=== PATIENT | female | born 1985 | race Caucasian/White ===

== ENCOUNTER 2017-06-03 07:43 | Emergency (ER) | payer OTHER ==
[~2017-06-03] VITALS: Ht 165.1 cm; Wt 68.3 kg
[2017-06-03 07:46] VITALS: BP 111/72; PULSE 94; RESP 14; O2SAT 100
--- NOTE | 2017-06-03 07:49 | ED.REPORT ---
HPI-Extremity Problem Lower Date of Service Jun 03, 2017 ED Provider: Barbara Jj Patient is a 31 year old female who is 24 weeks gestation who presents to the ED complaining of a bulging vein on her R lower extremity onset 3 days ago. Associated symptom include bruising and pain. Pt reports doing more hiking recently and has a flight tomorrow. She denies chest pain, SOB, dizziness, numbness, weakness, tingling, or any other symptoms. Nursing Notes Stated Complaint: RT ANTERIOR LEG VEIN Chief Complaint: Extremity Trauma Nursing Notes Reviewed: Yes Allergies: Coded Allergies: No Known Allergies (Unverified , 06/03/17) General Time Seen by MD: 07:48 Chief Complaint Leg injury right Hx Obtained From: Patient Arrived By: Walk-in Onset Occurred: 3 days ago Symptom Duration: Since onset Location: : Leg right Quality: Painful Severity: Current: Moderate Severity: Maximum: Moderate Pertinent Negative: Pt denies other symptoms Immunizations: Unknown Similar Sx Previous: No Past Medical History Past Medical History None reported Past Surgical History None reported Smoking History Unknown if Ever Smoker Social History Other Social History: , Visiting locally Ambulatory Status Independent Review of Systems Review of Systems Note: +bulging vein on her R lower extremity -tingling Musculoskeletal: Reports: Extremity pain Skin: Reports Bruising Neurologic: Denies: Dizziness, Numbness, Weakness Complete sys rev & neg: except as marked. Respiratory: Denies: Shortness of breath Cardiovascular: Denies: Chest pain Physical Exam Initial Vital Signs Vital Signs (First) Date Time Temp Pulse Resp B/P Pulse Ox O2 Delivery O2 Flow Rate FiO2 06/03/17 07:46 36.6 94 14 111/72 100 Room Air Initial VS: Reviewed, Vital signs normal Head / Eyes: Atraumatic, Normocephalic Neck: Supple, Full range of motion Respiratory: No respiratory distress Skin: Warm, Dry Neurologic: Alert, Oriented, Nonfocal Lower Extremity / Pelvis / MS: No swelling both calves are non-swollen superficial thrombophlebitis on R anterior machado mildly vericose vein, 15cm section without skin breakdown, cellulitis, or other erythema. Ankle / Foot: Inspection NL, No deformity, Neurologic intact, Vascular intact General/Constitutional: Awake, Alert, No acute distress : FHTs NL (rate 156) Positve movement Re-Eval/Medical Decision Re-Evaluation/Progress : Time of Eval: 08:04 Re-Evaluation/Progress Note: Discussed plan for discharge. Patient understands and agrees with plan. All questions addressed at this time. Counseled Regarding: Diagnosis, Need for follow-up, When/why to return to ED Discharge & Departure Impression: Primary Impression: Superficial thrombophlebitis during Trimester: unspecified trimester Qualified Code: O22.20 - Superficial thrombophlebitis in , unspecified trimester Disposition: Home Discharge Condition All VS Reviewed: Yes Condition: Stable Patient Instructions: Superficial Thrombophlebitis (ED) Additional Instructions: You can be reassured. this is a blood clot in your leg, BUT it is NOT a deep vein and NOT the kind I worry about for ending up in your lungs -take a baby asprin daily until you have a chance to talk with your OB provider at home -massage the area to help the clot break down and encourage blood flow -if tender, use tylenol and elevation for pain. You can try both heat and cold to see what feels best -get some knee high compression socks (any running store and most athletic stores) and wear them for comfort and while flying -while on plane tomorrow, make a point of walking to the bathroom a few times to get a bit a movement -all regular activity (inlcuding hiking/walking) is OK good luck with the rest of the ! Safe travels tomorrow Faith Attestation Portions of this note were transcribed by Catherine Mora. I, Dr. Jj personally performed the history, physical exam and medical decision-making; I reviewed and confirmed the accuracy of the information in the transcribed note. Signed by: Faith Tobin, 06/03/17 Barbara Jj MD Jun 03, 2017 07:49 CATHERINE MORA Jun 03, 2017 08:07
[2017-06-03 08:26] VITALS: BP 111/72; PULSE 94; RESP 14; O2SAT 100
== END 2017-06-03 08:26 | disposition home or self-care (01) ==
LOC: SED 07:43
DX: O22.22 Superficial thrombophlebitis in pregnancy, second trimester (principal); I80.01 Phlebitis and thrombophlebitis of superficial vessels of right lower extremity; Z3A.24 24 weeks gestation of pregnancy